=== PATIENT | male | born 1995 | race Caucasian/White ===

== ENCOUNTER 2017-04-15 11:51 | Emergency (ER) | payer BC ==
[2017-04-15] MEDS ORDERED: SULFAMETH-TMP DS STARTER PACK 2 TAB BTL PO STA (12:16)
--- NOTE | 2017-04-15 12:57 | ED ---
General Adult HPI - General Chief complaint: Skin/Abscess/Foreign Body Stated complaint: cyst Time Seen by Provider: 04/15/17 12:11 Source: patient, RN notes reviewed, old records reviewed Mode of arrival: ambulatory Limitations: no limitations - History of Present Illness Initial comments: This is a pleasant 21-year-old male presenting to the emergency Department chief complaint of pilonidal abscess. Patient reports that it's been uncomfortable for the past 2 days. Patient states that he has been taking Motrin Tylenol for pain. He had a previous pilonidal cyst removal surgery [address] Courtney. Patient reports that did not seem to heal well after that surgery, but is never had a reinfection as bad as this. Patient states that he has occasional drainage from the site, but has never had it severe pain and states that today. Patient reports he took one of his mother's leftover azithromycin as well as tramadol for him. - Related Data Home Medications Medication Instructions Recorded Confirmed Azithromycin [Zithromax Z-pack] 250 mg PO ONCE 04/15/17 04/15/17 traMADol HCL [Ultram] 50 mg PO ONCE PRN 04/15/17 04/15/17 Previous Rx's Medication Instructions Recorded Acetaminophen-Codeine 300-30mg 1 tab PO Q8H PRN #20 tablet 04/15/17 [Tylenol #3] Sulfamethox-Tmp 800-160Mg [Bactrim 2 tab PO Q12HR #40 tab 04/15/17 DS 800-160 mg] Allergies Allergy/AdvReac Type Severity Reaction Status Date / Time No Known Allergies Allergy Verified 04/15/17 12:20 Review of Systems ROS Statement: Those systems with pertinent positive or pertinent negative responses have been documented in the HPI. ROS Other: All systems not noted in ROS Statement are negative. Past Medical History Past Medical History: GERD/Reflux History of Any Multi-Drug Resistant Organisms: None Reported Past Surgical History: Hernia Repair Additional Past Surgical History / Comment(s): pylodonal cyst removal Past Psychological History: No Psychological Hx Reported Smoking Status: Current every day smoker Past Alcohol Use History: Occasional Past Drug Use History: None Reported General Exam - General Exam Comments Initial Comments: This is a pleasant 21-year-old male. No acute distress. Limitations: no limitations General appearance: alert, in no apparent distress Head exam: Present: atraumatic, normocephalic, normal inspection Eye exam: Present: normal appearance, PERRL, EOMI. Absent: scleral icterus, conjunctival injection, periorbital swelling ENT exam: Present: normal exam, mucous membranes moist Neck exam: Present: normal inspection. Absent: tenderness, meningismus, lymphadenopathy Respiratory exam: Present: normal lung sounds bilaterally. Absent: respiratory distress, wheezes, rales, rhonchi, stridor Cardiovascular Exam: Present: regular rate, normal rhythm, normal heart sounds. Absent: systolic murmur, diastolic murmur, rubs, gallop, clicks GI/Abdominal exam: Present: soft, normal bowel sounds. Absent: distended, tenderness, guarding, rebound, rigid Rectal exam: Present: other (Patient has evidence of pilonidal abscess between the gluteal cleft. Significant amount of hair that seemed to be from the abscess. Patient absolutely 30 actively draining. Evidence of his previous incision site. There does appear to be some mild dehiscence of the superficial area of the previous incision site.) Extremities exam: Present: normal inspection, full ROM, normal capillary refill. Absent: tenderness, pedal edema, joint swelling, calf tenderness Back exam: Present: normal inspection Neurological exam: Present: alert, oriented X3, CN II-XII intact Psychiatric exam: Present: normal affect, normal mood Skin exam: Present: warm, dry, intact, normal color. Absent: rash Course Vital Signs 04/15/17 11:57 Temperature 97.8 F Pulse Rate 100 Respiratory 18 Rate Blood Pressure 136/80 O2 Sat by Pulse 98 Oximetry Procedures - Incision & Drainage Site: scalp Size (cm): 5 Anesthetic Used: lidocaine 1% Amount (mLs): 6 I&D Cleaning Method: Iodine Sterile Field Used?: Yes Scalpel Used: #11 I&D Drainage Obtained: Pus, Blood Packing: Iodoform Patient Tolerated Procedure: well, no complications Medical Decision Making - Medical Decision Making This is a pleasant 21-year-old male with chief complaint of a pilonidal abscess has been more painful over the past 2 days. He had previous surgery by Dr. Sawant for years ago for cyst removal. Patient states that he's had occasional drainage since in July had severe pain as he sat in the past few days. Patient was incised and drained. There is evidence of previous incision site that seems to be somewhat dancing over the inferior aspect of the surgical incision, in there is area of erythema around the incision site. Patient had a 0.5 cm incision was packed with iodoform. Patient be discharged on Bactrim DS. Patient is receiving 2 tablets today in the emergency department. Discussed that he needs to follow closely with a surgeon to have this reevaluated especially due to the abnormalities of the previous incision site. Patient will be discharged with pain medication as well. Patient is history plan will comply. Return parameters were discussed. Disposition Clinical Impression: Pilonidal abscess Disposition: HOME SELF-CARE Condition: Good Instructions: Pilonidal Cyst (ED) Additional Instructions: Patient has a follow-up with a surgeon on Monday or Monday. Take the antibiotics as prescribed. Packing needs to be removed in 2 days. Return to the emergency department if any alarming signs or symptoms occur, including fevers, chills. Prescriptions: Acetaminophen-Codeine 300-30mg [Tylenol #3] 1 tab PO Q8H PRN #20 tablet PRN Reason: Pain Sulfamethox-Tmp 800-160Mg [Bactrim DS 800-160 mg] 2 tab PO Q12HR #40 tab Referrals: Jose Luis Chua DO [Primary Care Provider] - 1-2 days Penelope Jules MD [STAFF PHYSICIAN] - 1-2 days Astrid Gilliam MD [STAFF PHYSICIAN] - 1-2 days Sarah Kulkarni MD [STAFF PHYSICIAN] - 1-2 days Guanakito Dubon MD [STAFF PHYSICIAN] - 1-2 days Time of Disposition: 12:53
[2017-04-15 13:15] VITALS: BP 128/71; PULSE 82; RESP 16; TEMP 98.1
--- NOTE | 2017-04-17 09:47 | CDI ---
Documentation Clarification OP Dear Chelsy Bustos PA-C Please do addendum to ED report that provides Need I & D report for correct site. Thank you, Lora Jama [employer] Employment Associate If you have any questions, please contact Restaurant Area Director at [phone] [facility]
== END 2017-04-15 13:15 | disposition home or self-care (01) ==
LOC: EC 11:51
DX: L05.01 Pilonidal cyst with abscess (principal); F17.200 Nicotine dependence, unspecified, uncomplicated
CPT/HCPCS: 10080; 87070; 87205; 99283